=== PATIENT | female | born 1995 | race African-American/Black ===

== ENCOUNTER 2017-08-31 16:05 | Emergency (ER) | payer OTHER ==
[~2017-08-31] VITALS: Ht 162.6 cm; Wt 64.8 kg
[2017-08-31 16:49] LABS: HEMATOCRIT 42.2 % (36.0-46.0); HEMOGLOBIN 14.3 G/DL (11.9-15.5); MCH 28.5 PG (29.0-34.0); MCHC 33.9 G/DL (30.0-36.0); MCV 84.2 FL (83-99); PLATELET COUNT 244 K/uL (156-360); RBC DIS.WIDTH-CV 13.2 % (11.8-14.6); RBC DIS.WIDTH-SD 40.7 % (39-53); RED BLOOD COUNT 5.01 M/uL (3.80-5.20)
[2017-08-31 17:00] LABS: ALBUMIN 4.5 g/dL (3.2-4.8); CHLORIDE 106 mEq/L (99-109); POTASSIUM 4.6 mEq/L (3.7-5.4); SODIUM 139 mEq/L (136-147)
[2017-08-31 17:03] LABS: GLUCOSE 86 mg/dL (70-99); TOTAL PROTEIN 8.1 g/dL (6.4-8.3)
[2017-08-31 17:05] LABS: TOTAL BILIRUBIN 1.4 mg/dL (0.0-1.0)
[2017-08-31 17:06] LABS: ALKALINE PHOSPHATASE 75 IU/L (3-129); CREATININE 0.8 mg/dL (0.6-1.3); GFR ESTIMATE (CALCULATED) > 59 mL/min/
[2017-08-31 17:07] LABS: UREA NITROGEN (BUN) 8 mg/dL (9-23)
[2017-08-31 17:08] LABS: AST (GOT) 20 IU/L (2-34)
[2017-08-31 17:09] LABS: ALT (GPT) 6 IU/L (3-49)
[2017-08-31 17:18] LABS: QUANTITATIVE HCG < 4.0 MIU/ML
[2017-08-31 17:28] LABS: LIPASE 21 U/L (1.0-51.0)
[2017-08-31 18:07] LABS: APPEARANCE CLEAR ((CLEAR)); BILIRUBIN NEGATIVE; BLOOD NEGATIVE; COLOR YELLOW ((YELLOW)); GLUCOSE (STRIP) NEGATIVE; KETONES 5; LEUKOCYTES NEGATIVE; NITRITE NEGATIVE; PROTEIN (STRIP) NEGATIVE; SPECIFIC GRAVITY 1.019 (1.000-1.030); UCUL ADDED? NO; UROBILINOGEN 0.2 MG/DL (0.2-1.0)
[2017-08-31] MEDS ORDERED: MOTRIN600 MG PO (19:50)
[2017-08-31 19:54] VITALS: BP 131/99
== END 2017-08-31 19:56 | disposition home or self-care (01) ==
LOC: EME 16:05
PROVIDERS: Physician Assistant
DX: R10.31 Right lower quadrant pain (principal)
CPT/HCPCS: 74177; 76856; 80053; 81003; 83690; 84702; 85027; 99281; 99284; J2405; J7030

== ENCOUNTER 2017-11-04 15:18 | Emergency (ER) | payer OTHER ==
[~2017-11-04] VITALS: Ht 165.1 cm; Wt 62.3 kg
[~2017-11-04 15:18] MED LIST: MOTRIN600 MG PO
[2017-11-04 15:55] LABS: HEMOGLOBIN 13.4 G/DL (11.9-15.5); MCH 28.6 PG (29.0-34.0); MCHC 33.5 G/DL (30.0-36.0); MCV 85.5 FL (83-99); PLATELET COUNT 224 K/uL (156-360); RBC DIS.WIDTH-CV 12.9 % (11.8-14.6); RBC DIS.WIDTH-SD 39.9 % (39-53); RED BLOOD COUNT 4.68 M/uL (3.80-5.20); WHITE BLOOD COUNT 4.5 K/uL (4.1-10.2)
[2017-11-04 16:01] LABS: CHLORIDE 103 mEq/L (99-109); POTASSIUM 4.2 mEq/L (3.7-5.4); SODIUM 139 mEq/L (136-147)
[2017-11-04 16:02] LABS: GLUCOSE 86 mg/dL (70-99)
[2017-11-04 16:06] LABS: CREATININE 0.8 mg/dL (0.6-1.3); GFR ESTIMATE (CALCULATED) > 59 mL/min/
[2017-11-04 16:07] LABS: UREA NITROGEN (BUN) 8 mg/dL (9-23)
[2017-11-04 16:15] LABS: QUANTITATIVE HCG < 4.0 MIU/ML
[2017-11-04 16:54] LABS: APPEARANCE CLEAR ((CLEAR)); BILIRUBIN NEGATIVE; BLOOD NEGATIVE; COLOR YELLOW ((YELLOW)); GLUCOSE (STRIP) NEGATIVE; KETONES NEGATIVE; LEUKOCYTES NEGATIVE; NITRITE NEGATIVE; PROTEIN (STRIP) NEGATIVE; SPECIFIC GRAVITY 1.014 (1.000-1.030); UROBILINOGEN 0.2 MG/DL (0.2-1.0)
[2017-11-04] MEDS ORDERED: TRAMADOL HCL50 MG PO (17:28)
[2017-11-04] MEDS ORDERED: MOTRIN800 MG PO (17:28)
[2017-11-04 17:39] VITALS: BP 123/80
== END 2017-11-04 17:41 | disposition home or self-care (01) ==
LOC: EME 15:18
PROVIDERS: Physician Assistant
DX: N80.9 Endometriosis, unspecified (principal); R10.2 Pelvic and perineal pain; Z97.5 Presence of (intrauterine) contraceptive device
CPT/HCPCS: 80048; 81003; 84702; 85027; 99281; 99284